=== PATIENT | female | born 1965 | race Caucasian/White ===

== ENCOUNTER 2022-10-10 17:50 | Emergency (ER) | payer OTHER ==
[~2022-10-10] VITALS: Ht 170.2 cm; Wt 72.6 kg
[2022-10-10 18:07] VITALS: BP 121/77
--- NOTE | 2022-10-10 18:31 | NUR ---
BIB DAUGHTER FOR SURGICAL AREA WOUND CHECK. PT HAD BREAST IMPLANTS X1 MONTH.
--- NOTE | 2022-10-10 19:15 | NUR ---
SEEN AND EXAMINED BY GINA
[2022-10-10] MEDS ORDERED: CEPH-588 PO (19:19)
[2022-10-10 19:20] VITALS: BP 121/77
--- NOTE | 2022-10-10 19:20 | NUR ---
dc by .Patient discharged with v/s stable. Written and verbal after care instructions given and explained. Patient alert, oriented and verbalized understanding of instructions. Ambulatory with steady gait. All questions addressed prior to discharge. ID band removed. Patient advised to follow up with PMD. Rx of keflex given. Patient educated on indication of medication including possible reaction and side effects. Opportunity to ask questions provided and answered.
== END 2022-10-10 19:20 | disposition home or self-care (01) ==
LOC: MED 17:50
DX: Z41.1 Encounter for cosmetic surgery (principal)
CPT/HCPCS: 99283